=== PATIENT | male | born 1960 | race Caucasian/White ===

== ENCOUNTER 2016-09-24 21:56 | Emergency (ER) | payer MEDICARE, MEDICAID ==
[~2016-09-24] VITALS: Ht 180.3 cm; Wt 69.4 kg
[2016-09-24 21:58] VITALS: BP 136/84
== END 2016-09-24 23:51 | disposition home or self-care (01) ==
LOC: ED 23:45
DX: J31.0 Chronic rhinitis (principal); J01.00 Acute maxillary sinusitis, unspecified; J00 Acute nasopharyngitis [common cold]
CPT/HCPCS: 99283

== ENCOUNTER 2018-06-01 07:23 | Day surgery (SDC) | payer MEDICARE, MEDICAID ==
[~2018-06-01] VITALS: Ht 180.3 cm; Wt 77.3 kg
[2018-06-01] MEDS ORDERED: TRIA15OI TP (08:14)
[2018-06-01] MEDS ORDERED: OPDIVO IV (08:14)
[2018-06-01] MEDS ORDERED: NAPROXEN PO (08:14)
[2018-06-01] MEDS ORDERED: ATOM60CA PO (08:14)
[2018-06-01] MEDS ORDERED: OLAN5TAB9 PO (08:14)
[2018-06-01] MEDS ORDERED: FLUO60TA PO (08:14)
[2018-06-01] MEDS ORDERED: OMEG1CAP34 PO (08:14)
[2018-06-01] MEDS ORDERED: LACTATED RINGERS 1,000 ML IV SCH (08:14)
[2018-06-01 08:16] VITALS: BP 119/78
[2018-06-01] MEDS ORDERED: CHLORHEXIDINE 15 ML UDC ONE (08:44)
[2018-06-01 08:46] LABS: BASOPHILS # (AUTO) 0.01 x10^3/uL (0-0.1); BASOPHILS % (AUTO) 0 % (0-1); EOSINOPHILS # (AUTO) 0.59 x10^3/uL (0-0.4); EOSINOPHILS % (AUTO) 6 % (1-7); LYMPHOCYTES # (AUTO) 0.84 x10^3/uL (1-3.4); LYMPHOCYTES % (AUTO) 8 % (22-44); MD NO; MEAN CORPUSCULAR HEMOGLOBIN 33.6 pg (27.5-34.5); MEAN CORPUSCULAR HGB CONC 33.7 g/dL (33.2-36.2); MEAN CORPUSCULAR VOLUME 99.9 fL (81-97); MEAN PLATELET VOLUME 7.7 fL (7.4-10.4); MONOCYTES % (AUTO) 6 % (2-9); NEUTROPHILS # (AUTO) 8.65 x10^3/uL (1.8-6.8); NEUTROPHILS % (AUTO) 81 % (42-75); PLATELET COUNT 316 x10^3/uL (130-400); RED BLOOD COUNT 4.38 x10^6/uL (4.38-5.82); RED CELL DISTRIBUTION WIDTH 13.4 % (9.4-14.8)
[2018-06-01 08:55] LABS: ANION GAP 3 mmol/L (5-15); CALCIUM 8.4 mg/dL (8.5-10.1); CHLORIDE 111 mmol/L (98-107)
[2018-06-01] MEDS ORDERED: PROPOFOL 10 MG/ML, 20ML ONE (09:26)
[2018-06-01] MEDS ORDERED: MEPERIDINE/PF 25MG/0.5ML IVPush PRN (09:30)
[2018-06-01] MEDS ORDERED: MIDAZOLAM 1 MG/ML, 2ML IV PRN (09:30)
[2018-06-01] MEDS ORDERED: HALOPERIDOL 5 MG/ML IV PRN (09:30)
[2018-06-01] MEDS ORDERED: ONDANSETRON ODT 8 MG PO PRN (09:30)
[2018-06-01] MEDS ORDERED: HYDROmorphone 2 MG/ML, 1ML IVPush PRN (09:30)
[2018-06-01] MEDS ORDERED: OXYcodone 5 MG/5 ML ORAL.SOL UDC PO PRN (09:30)
[2018-06-01] MEDS ORDERED: PROMETHAZINE 25 MG/ML, 1ML IV PRN (09:30)
[2018-06-01] MEDS ORDERED: PROMETHAZINE 12.5 MG SUPP PR PRN (09:30)
[2018-06-01] MEDS ORDERED: LABETALOL 5MG/ML, 20ML IV PRN (09:30)
[2018-06-01] MEDS ORDERED: DIAZEPAM 5 MG/ML, 2ML IVPush PRN (09:30)
[2018-06-01] MEDS ORDERED: ONDANSETRON 2MG/ML, 2ML IV PRN (09:30)
[2018-06-01] MEDS ORDERED: hydrALAzine 20 MG/ML, 1ML IV PRN (09:30)
[2018-06-01] MEDS ORDERED: MORPHINE SULFATE 4 MG/ML, 1ML IVPush PRN (09:30)
[2018-06-01] MEDS ORDERED: EPHEDRINE 50 MG/ML, 1ML IVPush PRN (09:30)
[2018-06-01] MEDS ORDERED: ALBUTEROL SULFATE 2.5 MG/3 ML NPPB PRN (09:30)
[2018-06-01] MEDS ORDERED: FENTANYL PF 100 MCG/2ML IV PRN (09:30)
== END 2018-06-01 11:48 | disposition home or self-care (01) ==
LOC: OUT 07:23
PROVIDERS: ATTEND Internal Medicine Gastroenterology
DX: K29.60 Other gastritis without bleeding (principal); C77.0 Secondary and unspecified malignant neoplasm of lymph nodes of head, face and neck; C80.1 Malignant (primary) neoplasm, unspecified; J44.9 Chronic obstructive pulmonary disease, unspecified; F32.9 Major depressive disorder, single episode, unspecified; F17.210 Nicotine dependence, cigarettes, uncomplicated; Z98.890 Other specified postprocedural states; Z72.89 Other problems related to lifestyle
CPT/HCPCS: 36415; 43242; 80048; 85025; 88172; 88173; 88177; 88305; 88341; 88342; J2704; J7120

== ENCOUNTER 2018-06-08 13:36 | Emergency (ER) | payer MEDICARE, MEDICAID ==
[~2018-06-08] VITALS: Ht 180.3 cm; Wt 75.4 kg
[~2018-06-08 13:36] MED LIST: ATOM60CA PO; FLUO60TA PO; NAPROXEN PO; OLAN5TAB9 PO; OMEG1CAP34 PO; OPDIVO IV; TRIA15OI TP
--- NOTE | 2018-06-08 14:04 | NUR ---
FEELING ANXIOUS. HAD PALPITATIONS A COUPLE NIGHTS AGO. RIB PAIN BILATERAL.
[2018-06-08] MEDS ORDERED: ALBUTEROL/IPRATROPIUM 2.5MG/0.5MG, 3 ML ONE (14:49)
--- NOTE | 2018-06-08 14:50 | NUR ---
RT AT BEDSIDE.
--- NOTE | 2018-06-08 14:50 | NUR ---
PT MOVED FROM E TO RM 12. REPORT TO BOBBY
[2018-06-08] MEDS ORDERED: SODIUM CHLORIDE FLUSH 10ML SYR IVF ONE (15:00)
[2018-06-08] MEDS ORDERED: ALBUTEROL/IPRATROPIUM 2.5MG/0.5MG, 3 ML NPPB ONE (15:00)
--- NOTE | 2018-06-08 15:00 | NUR ---
RCEIVED REPORT FROM JENNIFER HEREDIA. PT RESTING ON GURNEY. FARRUKH. VSS. PT STATES HE FEELS MUCH IMPROVED AFTER BREATHING TX. FAMILY AT BEDSIDE.
[2018-06-08 15:08] LABS: BASOPHILS # (AUTO) 0.04 x10^3/uL (0-0.1); BASOPHILS % (AUTO) 0 % (0-1); EOSINOPHILS # (AUTO) 0.01 x10^3/uL (0-0.4); EOSINOPHILS % (AUTO) 0 % (1-7); LYMPHOCYTES # (AUTO) 1.11 x10^3/uL (1-3.4); LYMPHOCYTES % (AUTO) 8 % (22-44); MD NO; MEAN CORPUSCULAR HGB CONC 34.4 g/dL (33.2-36.2); MEAN CORPUSCULAR VOLUME 98.8 fL (81-97); MEAN PLATELET VOLUME 7.9 fL (7.4-10.4); MONOCYTES # (AUTO) 0.54 x10^3/uL (0.2-0.8); MONOCYTES % (AUTO) 4 % (2-9); NEUTROPHILS % (AUTO) 88 % (42-75); PLATELET COUNT 387 x10^3/uL (130-400); RED BLOOD COUNT 4.23 x10^6/uL (4.38-5.82); RED CELL DISTRIBUTION WIDTH 13.1 % (9.4-14.8)
[2018-06-08 15:14] LABS: ALBUMIN 3.6 g/dL (3.4-5.0); ANION GAP 4 mmol/L (5-15); CALCIUM 8.9 mg/dL (8.5-10.1); CHLORIDE 106 mmol/L (98-107)
[2018-06-08 15:19] LABS: ALANINE AMINOTRANSFERASE 24 U/L (12-78); ALKALINE PHOSPHATASE 79 U/L (45-117); BILIRUBIN,TOTAL 0.5 mg/dL (0.2-1.0); CREATININE 0.77 mg/dL (0.7-1.3); TOTAL PROTEIN 7.1 g/dL (6.4-8.2); TROPONIN I < 0.015 ng/mL (0.000-0.045)
--- NOTE | 2018-06-08 16:04 | NUR ---
PT RESTING ON GURNEY. NADN. MASSEY.
[2018-06-08] MEDS ORDERED: OMNIPAQUE 350 MG/ML, 100ML BOTTLE ONE (16:58)
[2018-06-08 17:13] VITALS: BP 150/95
--- NOTE | 2018-06-08 17:14 | NUR ---
PT RESTING ON GURNEY. NADN. MASSEY. PT CHART REVIEWED AND PLACED FOR RECHECK.
--- NOTE | 2018-06-08 17:29 | NUR ---
TASK RN: PT REPORTS IMPROVEMENT IN S/S W/ TREATMENT. DC EDUCATION PROVIDED, PT DEMONSTRATES UNDERSTANDING. PT AMBULATED STEADILY TO DC WITH RN
== END 2018-06-08 17:31 | disposition home or self-care (01) ==
LOC: ED 16:31
DX: J44.1 Chronic obstructive pulmonary disease with (acute) exacerbation (principal); J15.9 Unspecified bacterial pneumonia
CPT/HCPCS: 36415; 71045; 71275; 80053; 84484; 85025; 85379; 93005; 94640; 99284; J7620; Q9967

== ENCOUNTER 2019-03-05 15:46 | Emergency (ER) | payer MEDICARE, MEDICAID ==
[~2019-03-05] VITALS: Ht 180.3 cm; Wt 71.0 kg
[2019-03-05 16:13] VITALS: BP 140/77
[2019-03-05] MEDS ORDERED: PROPARACAINE OPHTH 0.5%, 15ML EACHEYE ONE (17:00)
[2019-03-05] MEDS ORDERED: FLUORESCEIN OPHTHALMIC 1 MG STRIP EACHEYE ONE (17:00)
[2019-03-05] MEDS ORDERED: PROPARACAINE OPHTH 0.5%, 15ML ONE (17:03)
[2019-03-05] MEDS ORDERED: FLUORESCEIN OPHTHALMIC 1 MG STRIP ONE (17:03)
--- NOTE | 2019-03-05 17:07 | NUR ---
BILATERAL EYES IRRIGATED WITH 100ML OF NS WITH SYMPTOM RELIEF-THEN MEDICATED WITH PROPARICAINE PER EMAR
--- NOTE | 2019-03-05 17:40 | NUR ---
WITH REASSESSMENT PATIENT REPORT "I FEEL COPMPLETELY BETTER. I CAN SEE PERFECT FOR ME. WHEN CAN I GO?"
== END 2019-03-05 18:04 | disposition home or self-care (01) ==
LOC: ED 16:26
DX: H10.213 Acute toxic conjunctivitis, bilateral (principal)
CPT/HCPCS: 99281

== ENCOUNTER 2019-12-01 13:30 | Emergency (ER) | payer MEDICARE, MEDICAID ==
[~2019-12-01] VITALS: Ht 170.2 cm; Wt 72.8 kg
--- NOTE | 2019-12-01 14:04 | NUR ---
CAD DRAFTER: PT TO ROOM FROM LOBBY
--- NOTE | 2019-12-01 14:12 | NUR ---
PT. IS A & O X 4 WITH A GCS OF 15. PT. IS PINK, WARM AND DRY. PT. HAS EXSP WHEEZING NOTED IN HIS LEFT LOWER LOBES. PT. REPORTS SMOKING LAST NOC AND STATES HE HAS A HX OF COPD. PT. IS HERE TODAY FOR EVALUATION OF RIGHT FOREARM PAIN. PT. WAS DX WITH PE X 3 WEEKS AGO AN IS ON XARALTO. PT. STATES IS BEING TREATED FOR CANCER. PT. IS RESTING WITH HIS HEAD ELEVATED GREATER THAN 30 DEGREES. SIDERAILS REMAIN UP X 2 WITH THE CALL LIGHT IN PLACE.
--- NOTE | 2019-12-01 15:14 | NUR ---
PT. REMAINS A & O X 4 WITH A GCS OF 15. CP MONITOR IS IN PLACE. VSS.
[2019-12-01 15:18] LABS: BASOPHILS # (AUTO) 0.05 x10^3/uL (0-0.1); BASOPHILS % (AUTO) 1 % (0-1); EOSINOPHILS # (AUTO) 0.35 x10^3/uL (0-0.4); EOSINOPHILS % (AUTO) 6 % (1-7); LYMPHOCYTES # (AUTO) 1.48 x10^3/uL (1-3.4); LYMPHOCYTES % (AUTO) 26 % (22-44); MD NO; MEAN CORPUSCULAR HEMOGLOBIN 30.6 pg (27.5-34.5); MEAN CORPUSCULAR HGB CONC 31.7 g/dL (33.2-36.2); MEAN CORPUSCULAR VOLUME 96.6 fL (81-97); MEAN PLATELET VOLUME 6.8 fL (7.4-10.4); MONOCYTES # (AUTO) 0.43 x10^3/uL (0.2-0.8); MONOCYTES % (AUTO) 7 % (2-9); NEUTROPHILS # (AUTO) 3.48 x10^3/uL (1.8-6.8); NEUTROPHILS % (AUTO) 60 % (42-75); PLATELET COUNT 455 x10^3/uL (130-400); RED CELL DISTRIBUTION WIDTH 14.4 % (9.4-14.8)
[2019-12-01 15:22] LABS: ALBUMIN 2.6 g/dL (3.4-5.0); ANION GAP 5 mmol/L (5-15); CALCIUM 8.5 mg/dL (8.5-10.1); CHLORIDE 103 mmol/L (98-107)
[2019-12-01 15:27] LABS: CREATININE 0.58 mg/dL (0.7-1.3); TROPONIN I < 0.015 ng/mL (0.000-0.045)
--- NOTE | 2019-12-01 15:31 | NUR ---
PERMISSION GRANTED FROM THE PT. TO GIVE HIS FATHER LOLY CASTRO INFORMATION IN REGARDS TO HIS CARE AT THIS TIME. PT.'S FATHER WAS GIVEN A CONDITION UPDATE.
--- NOTE | 2019-12-01 16:41 | NUR ---
Patient/Caregiver given discharge instructions and they have confirmed that they understand the instructions. Patient ambulatory with steady gait. Pt.'s iv was dcd', cath tip intact. Pressure held with hemostasis acheived.
[2019-12-01 16:42] VITALS: BP 136/82
== END 2019-12-01 16:45 | disposition home or self-care (01) ==
LOC: ED 16:21
DX: M79.621 Pain in right upper arm (principal); M79.631 Pain in right forearm; I44.39 Other atrioventricular block; I48.92 Unspecified atrial flutter; R94.31 Abnormal electrocardiogram [ECG] [EKG]; J44.9 Chronic obstructive pulmonary disease, unspecified; F17.200 Nicotine dependence, unspecified, uncomplicated
CPT/HCPCS: 36415; 80048; 82040; 84484; 85025; 93005; 99281; 99284